=== PATIENT | male | born 1980 | race Two or more races ===

== ENCOUNTER 2021-10-11 15:35 | Outpatient (CLI) | payer OTHER | END 2021-10-11 15:36 | disposition short-term general hospital (02) | LOC: EMS 15:35 | DX: R07.81 Pleurodynia (principal); R42 Dizziness and giddiness; R41.0 Disorientation, unspecified; M54.9 Dorsalgia, unspecified; S80.212A Abrasion, left knee, initial encounter; S80.211A Abrasion, right knee, initial encounter; V28.4XXA Motorcycle driver injured in noncollision transport accident in traffic accident, initial encounter; Y92.414 Local residential or business street as the place of occurrence of the external cause | CPT/HCPCS: A0425; A0427 ==